=== PATIENT | male | born 1990 | race Caucasian/White ===

== ENCOUNTER 2017-08-14 22:22 | Emergency (ER) | payer MEDICARE, OTHER ==
[~2017-08-14] VITALS: Ht 182.9 cm; Wt 73.0 kg
--- NOTE | 2017-08-14 22:26 | ED.ADGEN ---
Past History Past Medical History: Migraines Adult General Chief Complaint Chief Complaint ".. At 1130.. I got pain in my Rt forehead...then lost vision in my Rt. eye.. then lost sensation and weakness in my entire Rt. side... ..I took some Aspirin at 5:30.. .. and now I don't have any symptoms at all.. " HPI HPI Patient is a 26 year old male who presents with above hx and complaints Rt. forehead pain and vision lost in Rt. eye. Pt. then developed numbness and weakness in his entire right side. Pt. states presentation was mainly numbness. Pt. states it felt like his Rt arm was twitching... Pt. denies any previous episodes like this. Recent travel to and from [place] .. Pt. denies trauma, drug use or ill contacts. Pt. does occasion smoke cigars and drink alcohol. Pt. reports he is normally healthy. Pt. recent exposed to bug spray and industrial strength herbicides this week at work. Pt. has had migraines in the past, but they usually respond to Ibuprofen. Review of Systems Review of Systems Constitutional: Denies fever or chills [] Eyes: Denies change in visual acuity, redness, or eye pain []Hx. of Rt eye blindness- resolved. HENT: Denies nasal congestion or sore throat [] Respiratory: Denies cough or shortness of breath [] Cardiovascular: No additional information not addressed in HPI [] GI: Denies abdominal pain, nausea, vomiting, bloody stools or diarrhea [] : Denies dysuria or hematuria [] Musculoskeletal: Denies back pain or joint pain []Complaints of complete Rt side weakness- resolved. Integument: Denies rash or skin lesions [] Neurologic:Rt forehead headache, Rt sided focal weakness and sensory changes [] Endocrine: Denies polyuria or polydipsia [] All other systems were reviewed and found to be within normal limits, except as documented in this note. Family History Family History Non-contributory Current Medications Current Medications Current Medications Medications (Trade) Dose Ordered Sig/Roc Start Time Stop Time Status Last Admin Dose Admin Ceftriaxone Sodium 1 gm/ Sodium Chloride 50 ml @ 100 mls/hr 1X ONCE 08/15/17 00:00 08/15/17 00:29 UNV Ceftriaxone Sodium (Rocephin) 1 gm 1X ONCE 08/15/17 00:30 08/15/17 00:31 DC 08/15/17 00:18 1 GM Ketorolac Tromethamine (Toradol) 30 mg 1X ONCE 08/15/17 02:00 08/15/17 02:01 DC 08/15/17 01:58 30 MG Lactated Ringer's 1,000 ml @ 75 mls/hr 1X ONCE 08/14/17 23:30 08/15/17 12:49 08/14/17 23:30 75 MLS/HR Prednisone (Prednisone) 60 mg 1X ONCE 08/15/17 01:45 08/15/17 01:46 DC 08/15/17 01:47 60 MG See Nursing for home meds. Allergies Allergies Allergies Coded Allergies Type Severity Reaction Last Updated Verified No Known Drug Allergies 08/14/17 No NKDA Physical Exam Physical Exam Constitutional: Well developed, well nourished, no acute distress, non-toxic appearance. [] HENT: Normocephalic, atraumatic, bilateral external ears normal, oropharynx moist, no oral exudates, nose normal. []No temporal artery tenderness. ( Pt. localized prior headache in the Trigeminal maxillary and ophthalmic tracts.) Eyes: PERRLA, EOMI, conjunctiva normal, no discharge. [] No field defect noted. Fundus no juan daniel changes. Pt. reports no current vision changes. Glasses. Neck: Normal range of motion, no tenderness, supple, no stridor. [] Cardiovascular:Heart rate regular rhythm, no murmur [] Lungs & Thorax: Bilateral breath sounds clear to auscultation [] Abdomen: Bowel sounds normal, soft, no tenderness, no masses, no pulsatile masses. [] Skin: Warm, dry, no erythema, no rash. [] Back: No tenderness, no CVA tenderness. [] Extremities: No tenderness, no cyanosis, no clubbing, ROM intact, no edema. [] Neurologic: Alert and oriented X 3, normal motor function, normal sensory function, no focal deficits noted. []Distal Vib,. 128 intact. No drift. Scaffolder equal. DTR +2 brachial and patella. Air conduction more bone conduction. Pt. reports less acuity with Rt. ear. Pt. is ambulatory without problems. Psychologic: Affect anxious, judgement normal, mood normal. [] Current Patient Data Vital Signs Vital Signs Date Time Temp Pulse Resp B/P (MAP) Pulse Ox O2 Delivery O2 Flow Rate FiO2 08/15/17 02:55 65 20 98 Room Air 08/15/17 00:05 98.0 113/70 (84) Lab Results Laboratory Tests Test 08/14/17 23:02 08/14/17 23:03 Urine Collection Type Void Urine Color Straw Urine Clarity Clear Urine pH 6.0 Urine Specific [place] <=1.005 Urine Protein Neg (NEG-TRACE) Urine Glucose (UA) Neg mg/dL (NEG) Urine Ketones (Stick) Neg mg/dL (NEG) Urine Blood Trace (NEG) Urine Nitrite Neg (NEG) Urine Bilirubin Neg (NEG) Urine Urobilinogen Dipstick 0.2 mg/dL (0.2 mg/dL) Urine Leukocyte Esterase Neg (NEG) Urine RBC Occ /HPF (0-2) Urine WBC 0 /HPF (0-4) Urine Squamous Epithelial Cells None /LPF Urine Bacteria 0 /HPF (0-FEW) White Blood Count 7.4 x10^3/uL (4.0-11.0) Red Blood Count 4.63 x10^6/uL (4.30-5.70) Hemoglobin 14.6 g/dL (13.0-17.5) Hematocrit 42.0 % (39.0-53.0) Mean Corpuscular Volume 91 fL (79-100) Mean Corpuscular Hemoglobin 32 pg (25-35) Mean Corpuscular Hemoglobin Concent 35 g/dL (31-37) Red Cell Distribution Width 13.4 % (11.5-14.5) Platelet Count 357 x10^3/uL (140-400) Neutrophils (%) (Auto) 59 % (31-73) Lymphocytes (%) (Auto) 25 % (24-48) Monocytes (%) (Auto) 11 % (0-9) H Eosinophils (%) (Auto) 5 % (0-3) H Basophils (%) (Auto) 1 % (0-3) Neutrophils # (Auto) 4.4 x10^3uL (1.8-7.7) Lymphocytes # (Auto) 1.8 x10^3/uL (1.0-4.8) Monocytes # (Auto) 0.8 x10^3/uL (0.0-1.1) Eosinophils # (Auto) 0.4 x10^3/uL (0.0-0.7) Basophils # (Auto) 0.1 x10^3/uL (0.0-0.2) Erythrocyte Sedimentation Rate 26 (0-15) H Prothrombin Time 9.9 SEC (9.4-11.4) Prothrombin Time INR 1.0 (0.9-1.1) PTT 31 SEC (23-33) Sodium Level 140 mmol/L (136-145) Potassium Level 4.4 mmol/L (3.5-5.1) Chloride Level 102 mmol/L (98-107) Carbon Dioxide Level 29 mmol/L (21-32) Anion Gap 9 (6-14) Blood Urea Nitrogen 13 mg/dL (8-26) Creatinine 0.9 mg/dL (0.7-1.3) Estimated GFR (Cockcroft-Gault) 102.8 Glucose Level 89 mg/dL (70-99) Calcium Level 9.2 mg/dL (8.5-10.1) Magnesium Level 2.2 mg/dL (1.8-2.4) Creatine Kinase 95 U/L (39-308) Creatine Kinase MB (Mass) < 0.5 ng/mL (0.0-3.6) Creatine Kinase MB Relative Index 0.5 % (0-4) Troponin I Quantitative < 0.017 ng/mL (0-0.055) VB-Gxa-Q-Type Natriuretic Peptide 27 pg/mL (0-124) Urine Opiates Screen Neg (NEG) Urine Methadone Screen Neg (NEG) Urine Barbiturates Neg (NEG) Urine Phencyclidine Screen Neg (NEG) Urine Amphetamine/Methamphetamine Neg (NEG) Urine Benzodiazepines Screen Neg (NEG) Urine Cocaine Screen Neg (NEG) Urine Cannabinoids Screen Neg (NEG) Urine Ethyl Alcohol Neg (NEG) EKG EKG My interpretation EKG shows a sinus rhythm at 86 bpm. There is some nonspecific contour changes. Lateral but no signs of acute STEMI with contralateral changes. There is some wavering baseline in V2. Which appears be artifact[] Radiology/Procedures Radiology/Procedures Interpretation of chest x-ray shows no acute cardiopulmonary findings. I interpretation CT of head shows no shift, mass, edema, bleed, or fracture. [] Dose have findings of Rt. maxillary sinusitis. Course & Med Decision Making Course & Med Decision Making Pertinent Labs and Imaging studies reviewed. (See chart for details) . Discussed options of tx for TIA, Sinusitis and Vasculitis. Pt. elects to be discharge and tx ed with Keflex, Prednisone taper and daily baby Aspirin. 81 mg. Pt. declines admission and or transfer at this time. Pt. declines spinal tap at this time. Pt. must follow up. May need MRI and spinal tap for more definitive evaluation. Both his and pt. exhibit UCAR capacity and seem aware of risks of discharge. [] Final Impression Final Impression 1. Rt sided Numbness and weakness- entire side of body- resolved 2. Headache. Rt. sided[] - resolved 3. Rt. eye blindness- resolved. 4. Rt. Maxillary Sinusitis 5. Elevated Sed. Rate- 26 6. Migraine Variant? vs TIA ? vs Vasculitis vs Multiple sclerosis Dragon Disclaimer Dragon Disclaimer This electronic medical record was generated, in whole or in part, using a voice recognition dictation system. DARIUS MÉNDEZ MD August 14, 2017 22:26
[2017-08-14] MEDS ORDERED: IV RINGERS SOLUTION,LACTATED 1,000 ML IV ONE (23:30)
--- NOTE | 2017-08-14 23:43 | RAD ---
INDICATION: Right sided weakness and pain COMPARISON: None. TECHNIQUE: Axial CT images obtained through the head without intravenous contrast. One or more of the following individualized dose reduction techniques were utilized for this examination: 1. Automated exposure control; 2. Adjustment of the mA and/or kV according to patient size; 3. Use of iterative reconstruction technique. FINDINGS: No intracranial hemorrhage. No midline shift. Basal cisterns patent. Ventricles and sulci are unremarkable. No acute osseous abnormality. Partial visualization of mucosal thickening right maxillary sinus IMPRESSION: 1. No acute intracranial hemorrhage. 2. Partial visualization of mucosal thickening right maxillary sinus Electronically signed by: Yordan Redman MD (08/14/2017 11:40 PM) [facility]
[2017-08-15 00:05] VITALS: BP 113/70
[2017-08-15 00:19] LABS: BASO # 0.1 x10^3/uL (0.0-0.2); BASO % 1 % (0-3); EOS # 0.4 x10^3/uL (0.0-0.7); EOS % 5 % (0-3); HEMOGLOBIN 14.6 g/dL (13.0-17.5); LYMPH # 1.8 x10^3/uL (1.0-4.8); LYMPH % 25 % (24-48); MEAN CORPUSCULAR HEMOGLOBIN 32 pg (25-35); MEAN CORPUSCULAR HGB CONC 35 g/dL (31-37); MEAN CORPUSCULAR VOLUME 91 fL (79-100); MONO # 0.8 x10^3/uL (0.0-1.1); MONO % 11 % (0-9); NEUT # 4.4 x10^3uL (1.8-7.7); NEUT % 59 % (31-73); PLATELET COUNT 357 x10^3/uL (140-400); RED BLOOD COUNT 4.63 x10^6/uL (4.30-5.70); RED CELL DISTRIBUTION WIDTH 13.4 % (11.5-14.5); WHITE BLOOD COUNT 7.4 x10^3/uL (4.0-11.0)
[2017-08-15 00:21] LABS: BARBITURATES NEG (NEG); BENZODIAZEPINES NEG (NEG); CANNABINOIDS NEG (NEG); COCAINE NEG (NEG); METHADONE NEG (NEG); OPIATES NEG (NEG); PHENCYCLIDINE NEG (NEG)
[2017-08-15 00:23] LABS: AMPHETAMINE/METHAMPHETAMINE NEG (NEG)
--- NOTE | 2017-08-15 00:25 | RAD ---
Chest PA and lateral 08/14/2017. Reason for exam: Right-sided weakness. No infiltrate or effusion is seen. Heart size and pulmonary vascularity appear normal. IMPRESSION: No acute abnormality. Electronically signed by: Sulaiman Arceo Jr., MD (08/15/2017 12:22 AM) [facility] [place]
[2017-08-15] MEDS ORDERED: cefTRIAXone IV Push 1 GM VIAL. IVP ONE (00:30)
[2017-08-15 00:35] LABS: ANION GAP 9 (6-14); BLOOD UREA NITROGEN 13 mg/dL (8-26); CALCIUM 9.2 mg/dL (8.5-10.1); CARBON DIOXIDE 29 mmol/L (21-32); CHLORIDE 102 mmol/L (98-107); CREATININE 0.9 mg/dL (0.7-1.3); GFR 102.8; GLUCOSE 89 mg/dL (70-99); MAGNESIUM 2.2 mg/dL (1.8-2.4); POTASSIUM 4.4 mmol/L (3.5-5.1); SODIUM 140 mmol/L (136-145)
[2017-08-15 00:47] LABS: BACTERIA,URINE 0 /HPF (0-FEW); BILIRUBIN,URINE NEG (NEG); CLARITY,URINE CLEAR; COLOR,URINE STRAW; GLUCOSE,URINE NEG (NEG); NITRITE,URINE NEG (NEG); RBC,URINE OCC /HPF (0-2); UROBILINOGEN,URINE 0.2 mg/dL (0.2 mg/dL); WBC,URINE 0 /HPF (0-4)
[2017-08-15 01:18] LABS: SEDIMENTATION RATE 26 (0-15)
[2017-08-15] MEDS ORDERED: predniSONE 20 MG TABLET PO ONE (01:45)
[2017-08-15] MEDS ORDERED: CEPH-264 PO (01:45)
[2017-08-15] MEDS ORDERED: PRED50TA PO (01:45)
[2017-08-15] MEDS ORDERED: KETOROLAC 30 MG/ML VIAL. IV ONE (02:00)
--- NOTE | 2017-08-15 19:10 | EKG ---
[address] [address] Test Date: 2017-08-14 Test Time: 23:07:30 Pat Name: HECTOR MANN Department: Room: Gender: M Director Government: [id number] : [id number] Requested By: DARIUS MÉNDEZ Order Number: [id number] Reading MD: Measurements Intervals [place] Rate: 86 P: 77 AR: 166 QRS: 87 QRSD: 86 T: 62 QT: 360 QTc: 434 Interpretive Statements SINUS RHYTHM QRS(T) CONTOUR ABNORMALITY CONSIDER ANTEROLATERAL MYOCARDIAL DAMAGE POSSIBLY ABNORMAL ECG RI6.01 No previous ECG available for comparison
== END 2017-08-15 02:54 | disposition home or self-care (01) ==
LOC: ER 22:22
DX: J32.0 Chronic maxillary sinusitis (principal); R70.0 Elevated erythrocyte sedimentation rate; G43.909 Migraine, unspecified, not intractable, without status migrainosus
CPT/HCPCS: 36415; 70450; 71046; 80048; 80307; 81001; 82553; 83735; 83880; 84484; 85025; 85610; 85651; 85730; 93005; 96374; 96375; 99285; J0696; J1885; J7120; J7512; G0479